=== PATIENT | female | born 1995 | race Caucasian/White ===

== ENCOUNTER 2021-12-01 08:02 | Outpatient (CLI) | payer OTHER ==
[2021-12-01 08:35] LABS: GTT GLUCOSE,FASTING 110 mg/dL (70-100)
[2021-12-01 09:58] LABS: THYROID STIMULATING HORMONE 2.34 uIU/mL (0.34-5.60)
[2021-12-01 10:02] LABS: FREE T4 (FREE THYROXINE) 0.91 ng/dL (0.58-1.64)
[2021-12-01 12:49] LABS: ESTIMATED AVERAGE GLUCOSE 117 mg/dL (70-100); HEMOGLOBIN A1c% 5.7 % (4.27-6.07)
== END 2021-12-01 08:03 | disposition home or self-care (01) ==
LOC: LAB 08:02
PROVIDERS: ATTEND Nurse Practitioner Obstetrics & Gynecology
DX: N92.6 Irregular menstruation, unspecified (principal); E66.8 Other obesity
CPT/HCPCS: 36415; 82951; 83036; 84439; 84443

== ENCOUNTER 2022-02-08 12:13 | Emergency (ER) | payer OTHER ==
--- OUTSIDE RECORDS SUMMARY | 2022-02-08 12:43 | EXTERNAL MEDICAL SUMMARY RPT | Continuity of Care Document ---
:1995 Author Organization [facility] Address [address] [place] [address] Phone Allergies No information. Encounters No information. Functional Status No information. Immunizations No information. Medications date description facility [id number] metoprolol tartrate All [id number]+0000 metformin All [id number]+0000 metformin All [id number]+0000 metoprolol tartrate All Problems No information. Procedures date description facility [id number] Visit Code Hold All Results/Labs No information. Social History No information. Vital Signs date measurement value units [id number]+0000 BMI BMI 42.13 kg/m2 04911217999135+0000 BP_diastolic BP_diastolic 85 mm[H g] 91374148416285+0000 BP_systolic BP_systolic 137 mm[Hg] 29094976468990+0000 heart_rate heart_rate 97 /min 00887725170610+0000 height_metric height_metric 170.18 cm 17467306838502+0000 height_standard height_standard 67 in 32447031874751+0000 respiration_rate respiration_rate 16 /min 34784730326959+0000 temperature_metric temperature_metric 36.78 C [id number]+0000 temperature_standard temperature_standard 9 8.2 F 84630517121964+0000 weight_metric weight_metric 121.56 kg 53926996754817+0000 weight_standard weight_standard 268 lb
[2022-02-08 12:44] LABS: EOSINOPHILS % (AUTO) 1.6 %; HCT - HEMATOCRIT 42.4 % (37.0-47.0); HGB - HEMOGLOBIN 14.5 g/dL (12.0-16.0); LYMPHOCYTES % (AUTO) 64.1 %; MEAN CORPUSCULAR HEMOGLOBIN 29.4 pg (27.0-31.0); MEAN CORPUSCULAR HGB CONC 34.2 g/dL (32.0-36.0); MEAN PLATELET VOLUME 9.9 fL (7.9-10.8); MONOCYTES % (AUTO) 6.8 %; PLT - PLATELET COUNT 279 10^3/uL (130-450); RED BLOOD COUNT 4.93 10^6/uL (4.20-5.40); RED CELL DISTRIBUTION WIDTH 13.2 % (12.0-15.0); WHITE BLOOD COUNT 10.5 x10^3/uL (4.8-10.8)
[2022-02-08 12:48] LABS: SLIDE REVIEW? Indicated
[2022-02-08 12:49] LABS: ABNORMAL LYMPHS % (MANUAL) 0 %
[2022-02-08 13:01] LABS: ALBUMIN 4.1 g/dL (3.2-5.5); ALBUMIN/GLOBULIN RATIO 1.1 (1.0-2.2); BILIRUBIN,TOTAL 0.4 mg/dL (0.2-1.0); CALCIUM 9.5 mg/dL (8.5-10.3); CREATININE 0.9 mg/dL (0.4-1.0); POTASSIUM 3.9 mmol/L (3.5-5.0); TOTAL PROTEIN 7.8 g/dL (6.7-8.2)
--- NOTE | 2022-02-08 13:04 | XRAY Report ---
PROCEDURE: Chest 1 View X-Ray INDICATIONS: Chest pain COMMENTS: CHEST PAIN/ PT STATES ONGOING CHEST PAIN THAT IS CENTRALLY LOC ATED THE RADIATES TO HER LEFT ARM AND DOWN PRIORS: NONE TECHNIQUE: One view of the chest was acquired. COMPARISON: None FINDINGS: Surgical changes and devices: None. Lungs and pleura: No pleural effusions or pneumothorax. Lungs are clear. Mediastinum: Mediastinal contours appear normal. Heart size is normal. Bones and chest wall: No suspicious bony lesions. Overlying soft tissues appear unremarkable. IMPRESSION: Normal chest x-ray Reviewed by: Gabe Zamora on 02/08/2022 12:03 PM NETTA Approved by: Gabe Zamora on 02/08/2022 12:03 PM NETTA Station ID: [id number]
[2022-02-08 13:32] LABS: BAND NEUTROPHILS % (MANUAL) 6 %; BASOPHILS # (MANUAL) 0.1 10^3/uL (0-0.1); BASOPHILS % (MANUAL) 1 %; DIFFERENTIAL COMMENT MANUAL DIFFERENTIAL; EOSINOPHILS # (MANUAL) 0.1 10^3/uL (0-0.7); LYMPHOCYTES # (MANUAL) 6.8 10^3/uL (1.5-3.5); LYMPHOCYTES % (MANUAL) 10 %; MONOCYTES # (MANUAL) 0.2 10^3/uL (0.0-1.0); NEUTROPHILS # (MANUAL) 3.3 10^3/uL (1.5-6.6); REACTIVE LYMPHS % (MANUAL) 55 %
[2022-02-08 13:33] LABS: PLATELET ESTIMATE, MANUAL NORMAL (130-450,000) (NORMAL); PLATELET MORPHOLOGY NORMAL APPEARANCE (NORMAL); RBC MORPHOLOGY (MULTIPLE) NORMAL APPEARANCE (NORMAL); WBC MORPHOLOGY (MULTIPLE) 4+ REACTIVE LYMPHS (NORMAL)
[2022-02-08 14:42] LABS: BILIRUBIN,URINE NEGATIVE (NEGATIVE); GLUCOSE, URINE (UA) NEGATIVE (NEGATIVE); KETONES,URINE (UA) NEGATIVE (NEGATIVE); LEUKOCYTE ESTERASE, URINE NEGATIVE (NEGATIVE); NITRITE,URINE NEGATIVE (NEGATIVE); OCCULT BLOOD,URINE NEGATIVE (NEGATIVE); PROTEIN,URINE NEGATIVE (NEGATIVE); UROBILINOGEN,URINE 1 (NORMAL) E.U./dL (NORMAL)
[2022-02-08 14:45] LABS: CLARITY,URINE CLEAR (CLEAR); HCG UR QUAL NEGATIVE
--- NOTE | 2022-02-08 16:51 | ED Physician Documentation ---
History of Present Illness - Stated complaint Stated Complaint: CHEST TIGHT/PX - Chief complaint Chief Complaint: Cardiac - History obtained from History obtained from: Patient - Additonal information Additional information: Pt comes to the ED with CC of central chest pain today. She denies any other sx. No nausea, SOB, or lightheadedness. SHe does not feel ill. The pt has been having migrating chest pains since testing positive for covid about a month ago. No fever or cough. No other complaints at this time. Review of Systems Ten Systems: 10 systems reviewed and negative Constitutional: reports: Reviewed and negative Eyes: reports: Reviewed and negative Ears: reports: Reviewed and negative Nose: reports: Reviewed and negative Throat: reports: Reviewed and negative Cardiac: reports: Chest pain / pressure Respiratory: reports: Reviewed and negative GI: reports: Reviewed and negative : reports: Reviewed and negative Skin: reports: Reviewed and negative Musculoskeletal: reports: Reviewed and negative Neurologic: reports: Reviewed and negative Psychiatric: reports: Reviewed and negative Endocrine: reports: Reviewed and negative Immunocompromised: reports: Reviewed and negative PD PAST MEDICAL HISTORY - Present Medications Home Medications: Ambulatory Orders Medication Instructions Recorded Confirmed predniSONE [Deltasone] 10 mg PO [id number] #42 tab 02/08/22 - Allergies Allergies/Adverse Reactions: Allergies Allergy/AdvReac Type Severity Reaction Status Date / Time No Known Drug Allergies Allergy Verified 02/08/22 12:23 PD ED PE NORMAL - Vitals Vital signs reviewed: Yes - General General: Alert and oriented X 3, No acute distress - HEENT HEENT: Atraumatic, PERRL, EOMI, Moist mucous membranes - Neck Neck: Supple, no meningeal sign - Cardiac Cardiac: RRR, No murmur - Respiratory Respiratory: No respiratory distress, Clear bilaterally - Abdomen Abdomen: Soft, Non tender, Non distended - Derm Derm: Warm and dry - Extremities Extremities: No deformity - Neuro Neuro: Alert and oriented X 3 - Psych Psych: Normal mood, Normal affect Results - Vitals Vitals: Vital Signs - 24 hr 02/08/22 02/08/22 02/08/22 12:24 12:30 16:58 Temperature 37.6 C 37.6 C 37.4 C Heart Rate 102 H 102 H 88 Respiratory 23 23 22 Rate Blood Pressure 148/78 H 148/78 H 130/76 O2 Saturation 97 97 100 Oxygen O2 Source Room air - EKG (time done) 1227 Rate: Rate (enter#) (104) Rhythm: Sinus tachycardia Elora: Normal Intervals: Normal IN QRS: Normal Ischemia: Normal ST segments, Non specific changes Compare to prior EKG: Old EKG unavailable Computer interpretation: Disagree with computer (No ischemic findings) - Labs Labs: Laboratory Tests 02/08/22 02/08/22 02/08/22 12:38 12:38 12:38 WBC 10.5 RBC 4.93 Hgb 14.5 Hct 42.4 MCV 86.0 MCH 29.4 MCHC 34.2 RDW 13.2 Plt Count 279 MPV 9.9 Neut # (Auto) Not Reportable Lymph # (Auto) Not Reportable [place] # (Auto) Not Reportable Eos # (Auto) Not Reportable Baso # (Auto) Not Reportable Absolute Nucleated RBC Not Reportable Total Counted 100 Band Neuts % (Manual) 6 Reactive Lymphs % (Man) 55 Abnorm Lymph % (Manual) 0 Nucleated RBC % Not Reportable Neutrophils # (Manual) 3.3 Lymphocytes # (Manual) 6.8 H Monocytes # (Manual) 0.2 Eosinophils # (Manual) 0.1 Basophils # (Manual) 0.1 Differential Comment MANUAL DIFFERENTIAL Manual Slide Review Indicated WBC Morphology 4+ REACTIVE LYMPHS Platelet Estimate NORMAL (130-450,000) Platelet Morphology NORMAL APPEARANCE RBC Morph Micro Appear NORMAL APPEARANCE Sodium 138 Potassium 3.9 Chloride 105 Carbon Dioxide 25 Anion Gap 8.0 BUN 12 Creatinine 0.9 Estimated GFR (MDRD) 77 L Glucose 116 H Calcium 9.5 Total Bilirubin 0.4 AST 104 H ALT 239 H Alkaline Phosphatase 136 H Troponin I High Sens 3.6 Total Protein 7.8 Albumin 4.1 Globulin 3.7 Albumin/Globulin Ratio 1.1 Lipase 40 Urine Color Urine Clarity Urine pH Ur Specific [place] Urine Protein Urine Glucose (UA) Urine Ketones Urine Occult Blood Urine Nitrite Urine Bilirubin Urine Urobilinogen Ur Leukocyte Esterase Ur Microscopic Review Urine Culture Comments Urine HCG, Qual 02/08/22 14:29 WBC RBC Hgb Hct MCV MCH MCHC RDW Plt Count MPV Neut # (Auto) Lymph # (Auto) [place] # (Auto) Eos # (Auto) Baso # (Auto) Absolute Nucleated RBC Total Counted Band Neuts % (Manual) Reactive Lymphs % (Man) Abnorm Lymph % (Manual) Nucleated RBC % Neutrophils # (Manual) Lymphocytes # (Manual) Monocytes # (Manual) Eosinophils # (Manual) Basophils # (Manual) Differential Comment Manual Slide Review WBC Morphology Platelet Estimate Platelet Morphology RBC Morph Micro Appear Sodium Potassium Chloride Carbon Dioxide Anion Gap BUN Creatinine Estimated GFR (MDRD) Glucose Calcium Total Bilirubin AST ALT Alkaline Phosphatase Troponin I High Sens Total Protein Albumin Globulin Albumin/Globulin Ratio Lipase Urine Color DARK YELLOW Urine Clarity CLEAR Urine pH 6.0 Ur Specific [place] 1.020 Urine Protein NEGATIVE Urine Glucose (UA) NEGATIVE Urine Ketones NEGATIVE Urine Occult Blood NEGATIVE Urine Nitrite NEGATIVE Urine Bilirubin NEGATIVE Urine Urobilinogen 1 (NORMAL) Ur Leukocyte Esterase NEGATIVE Ur Microscopic Review NOT INDICATED Urine Culture Comments NOT INDICATED Urine HCG, Qual NEGATIVE - Rads (name of study) abd US Radiology: Final report received, EMP read indepedently, See rad report (Hepatic steatosis and hepatomegaly) CXR Radiology: Final report received, EMP read indepedently, See rad report (neg) PD MEDICAL DECISION MAKING - ED course Complexity details: reviewed results, re-evaluated patient, considered differential, d/w patient ED course: Pt was well-appearing, but worked up with labs, EKG, CXR, initially. Her work- up was unremarkable, except for elevated LFTs. For this reason, US of the RUQ was ordered, and showed fatty liver and hepatomegaly. I d/w pt this finding, which I suspect is due to her obesity. Pt is advised to see her doctor to discuss further management, including a weight-loss plan. We have discussed the usual indications for return. Departure - Departure Disposition: 01 Home, Self Care Clinical Impression: Fatty liver Chest pain Qualifiers: Chest pain type: unspecified Qualified Code(s): R07.9 - Chest pain, unspecified Condition: Stable Instructions: NAFLD, ED Chest Pain Costochondritis Prescriptions: predniSONE [Deltasone] 10 mg PO [id number] #42 tab Comments: Your chest x-ray and EKG looked good and your labs mostly look good except for your liver enzymes which were somewhat elevated. Because of this, we did do an ultrasound to look at your liver and gallbladder. You do have some infiltration of fat into your liver and this is causing it to be enlarged. This can be a cause of your liver enzymes being higher than normal. Often, we see if fatty liver as the result of medications or sometimes chronic alcohol use, but it can also be related to fat content in the body. Please follow-up with your primary care physician to discuss further management strategies for this. Regarding your chest pain, a prescription for prednisone has been sent to the [facility] pharmacy in [place], which is your pharmacy of record. This can help some the inflammation in your chest wall following the viral syndrome you have had. You may pick this up tomorrow. Discharge Date/Time: 02/08/22 16:58
--- NOTE | 2022-02-08 16:57 | Ultrasound Report ---
PROCEDURE: Abdomen Limited INDICATIONS: upper abd/chest pn, elev LFTs TECHNIQUE: Real-time focused scanning was performed of the abdomen, with image documentation. COMPARISON: None FINDINGS: Liver: The liver is enlarged measuring 22 cm. Echotexture is increased consistent with hepatic steato sis. There is hepatopedal flow the portal vein. No mass or intrahepatic biliary ductal dilatation. Gallbladder: The gallbladder is contracted no stones. No wall thickening. Trace pericholecystic fluid is nonspecific. Biliary tree: The common bile duct measures 2.3 mm. Pancreas: The pancreas is normal. Kidneys: Right kidney measures 12.7. Cortical thickness is 1.7 cm. IMPRESSION: 1. Hepatomegaly and hepatic steatosis. 2. No acute abnormality. Reviewed by: Gabe Zamora on 02/08/2022 3:55 PM NETTA Approved by: Gabe Zamora on 02/08/2022 3:55 PM NETTA Station ID: [id number]
[2022-02-08 16:59] VITALS: BP 130/76
== END 2022-02-08 16:58 | disposition home or self-care (01) ==
LOC: ED 12:13
DX: R94.5 Abnormal results of liver function studies (principal); K76.0 Fatty (change of) liver, not elsewhere classified; E66.9 Obesity, unspecified; R07.9 Chest pain, unspecified
CPT/HCPCS: 36415; 80053; 81001; 81003; 81025; 83690; 84484; 85025; 87086; 93005; 99283; 99284

== ENCOUNTER 2022-02-28 06:55 | Emergency (ER) | payer OTHER ==
--- NOTE | 2022-02-28 07:26 | ED Physician Documentation ---
PD HPI ABD PAIN - Stated complaint Stated Complaint: BAKC/ABD PAIN - Chief complaint Chief Complaint: Abd Pain - History obtained from History obtained from: Patient - History of Present Illness Timing - onset: Yesterday (after dinner last evening ([place] food), onset upper abd to mid abd cramping pain that has persisted overnight.) Timing - duration: Hours (12) Timing - details: Gradual onset, Still present, Waxing and waning Quality: Cramping, Aching, Pain Location: RUQ, Epigastric, Periumbilical Radiation: Upper back Improved by: Laying still, Position (feels better sitting up, abd hunched.) Worsened by: Position (feels worse lying straight/flat.) Associated symptoms: Nausea. No: Fever, Vomiting, Diarrhea (had few small amount soft to liquid movements, but not overt watery diarrhea.), Constipation Similar symptoms before: Has not had sx before (history of PCOS with ruptured cysts multiple times, but this is not feeling like those.) Recently seen: Emergency Dept (02/08/22 for right chest pain and mild cough. Had COVID a month prior. Eval did not show acute lung process. Had elevated LFTs so RUQ US done showing no acute problems (just fatty liver). No gallstones at that time.) Review of Systems Constitutional: denies: Fever, Chills Nose: denies: Rhinorrhea / runny nose, Congestion Throat: denies: Sore throat Cardiac: denies: Chest pain / pressure Respiratory: denies: Cough GI: reports: Abdominal Pain, Nausea. denies: Vomiting, Constipation, Bloody / black stool : denies: Dysuria, Frequency, Irregular menses Skin: denies: Rash, Lesions Neurologic: denies: Generalized weakness, Near syncope PD PAST MEDICAL HISTORY - Past Medical History Cardiovascular: None Respiratory: None Endocrine/Autoimmune: None COMMUNICATIONS SENIOR ASSOCIATE: Other (PCOS) - Present Medications Home Medications: Ambulatory Orders Medication Instructions Recorded Confirmed Metoprolol Tartrate [Lopressor] 25 mg PO BID 02/28/22 02/28/22 Sertraline [Zoloft] 25 mg PO DAILY 02/28/22 02/28/22 metFORMIN [Glucophage] 500 mg PO ONCE 02/28/22 02/28/22 - Allergies Allergies/Adverse Reactions: Allergies Allergy/AdvReac Type Severity Reaction Status Date / Time adhesive AdvReac Rash Verified 02/28/22 07:05 PD ED PE NORMAL - Vitals Vital signs reviewed: Yes - General General: Alert and oriented X 3, No acute distress, Well developed/nourished - HEENT HEENT: Pharynx benign - Neck Neck: Supple, no meningeal sign, No adenopathy - Cardiac Cardiac: RRR (mild tachycardia which patient says is common for her.), No murmur - Respiratory Respiratory: Clear bilaterally - Abdomen Abdomen: Normal bowel sounds, Soft, Non distended, No organomegaly, Other (moderate tenderness periumbilical with mild guarding and percussion tenderness. elevated BMI. ) - Female Female : Deferred - Rectal Rectal: Deferred - Back Back: No CVA TTP - Derm Derm: Normal color, Warm and dry - Neuro Neuro: Alert and oriented X 3, No motor deficit, Normal speech Results - Vitals Vitals: Vital Signs - 24 hr 02/28/22 02/28/22 02/28/22 07:02 09:57 11:00 Temperature 36.2 C L Heart Rate 107 H 93 88 Respiratory 18 16 18 Rate Blood Pressure 135/76 H 130/69 120/74 O2 Saturation 98 100 100 Oxygen O2 Source Room air - Labs Labs: Laboratory Tests 02/28/22 02/28/22 02/28/22 07:57 07:57 08:10 WBC 15.1 H RBC 4.92 Hgb 14.8 Hct 42.9 MCV 87.2 MCH 30.1 MCHC 34.5 RDW 13.4 Plt Count 310 MPV 9.6 Neut # (Auto) 10.7 H Lymph # (Auto) 3.2 [place] # (Auto) 1.0 Eos # (Auto) 0.1 Baso # (Auto) 0.0 Absolute Nucleated RBC 0.00 Nucleated RBC % 0.0 Sodium 138 Potassium 4.1 Chloride 103 Carbon Dioxide 26 Anion Gap 9.0 BUN 10 Creatinine 0.7 Estimated GFR (MDRD) 103 Glucose 134 H Calcium 10.0 Total Bilirubin 0.9 AST 37 ALT 101 H Alkaline Phosphatase 65 Total Protein 8.1 Albumin 4.4 Globulin 3.7 Albumin/Globulin Ratio 1.2 Lipase 37 Urine Color YELLOW Urine Clarity CLEAR Urine pH 6.5 Ur Specific [place] <=1.005 Urine Protein NEGATIVE Urine Glucose (UA) NEGATIVE Urine Ketones NEGATIVE Urine Occult Blood NEGATIVE Urine Nitrite NEGATIVE Urine Bilirubin NEGATIVE Urine Urobilinogen 0.2 (NORMAL) Ur Leukocyte Esterase NEGATIVE Ur Microscopic Review NOT INDICATED Urine Culture Comments NOT INDICATED Urine HCG, Qual NEGATIVE - Rads (name of study) abd/pelvic CT Radiology: Prelim report reviewed (acute appendicitis), Discussed with rads, See rad report PD MEDICAL DECISION MAKING - ED course Complexity details: reviewed results (CT scan showing acute appendicitis with enlarged appendix and surrounding swelling.), re-evaluated patient (Recheck of the abdomen after CT has more distinctly now right lower quadrant to perium bilical tenderness. There is still local guarding and percussion tenderness, now more distinctly RLQ, but no general peritoneal signs.), considered differential, d/w patient, d/w technology sales consultant (We do not have surgical coverage at our facility through the weekend. I did talk with Dr. Lee who is on-call for surgery at [facility] and he is excepting of the patient. CT was showing uncomplicated appendicitis.) ED course: We have no surgeon on-call at our facility for another 24 hours. We will look to transfer the patient. We will initiate IV antibiotics. Departure - Departure Disposition: 02 Transfer Acute Care Hosp Clinical Impression: Abdominal pain Qualifiers: Abdominal location: periumbilical Qualified Code(s): R10.33 - Periumbilical pain Acute appendicitis Qualifiers: Acute appendicitis type: with localized peritonitis Appendicitis gangrene presence: without gangrene Appendicitis perforation presence: without perforation Appendicitis abscess presence: without abscess Qualified Code(s): K35.30 - Acute appendicitis with localized peritonitis, without perforation or gangrene Condition: Stable Record reviewed to determine appropriate education?: Yes
--- OUTSIDE RECORDS SUMMARY | 2022-02-28 07:28 | EXTERNAL MEDICAL SUMMARY RPT | Continuity of Care Document ---
:1995 Author Organization [place] Address [address] [place] [address] Phone Allergies No information. Encounters No information. Functional Status No information. Immunizations No information. Medications date description facility [id number]+0000 metoprolol tartrate All [id number]+0000 metformin All 69783291588083+0000 metformin All 34146958664746+0000 metoprolol tartrate All Problems No information. Procedures date description facility [id number]+0000 Visit Code Hold All Results/Labs No information. Social History No information. Vital Signs date measurement value units 85703626704963+0000 BMI BMI 42.13 kg/m2 79838866991340+0000 BP_diastolic BP_diastolic 85 mm[H g] 97346778450065+0000 BP_systolic BP_systolic 137 mm[Hg] 91317340647921+0000 heart_rate heart_rate 97 /min 26039291166997+0000 height_metric height_metric 170.18 cm 06695911501400+0000 height_standard height_standard 67 in 65492201269266+0000 respiration_rate respiration_rate 16 /min 86528596068272+0000 temperature_metric temperature_metric 36.78 C 72330621909851+0000 temperature_standard temperature_standard 9 8.2 F 70434130098148+0000 weight_metric weight_metric 121.56 kg 75383288815058+0000 weight_standard weight_standard 268 lb
[2022-02-28] MEDS ORDERED: KETOROLAC 15 MG/ML VIAL IVP STA (07:42)
[2022-02-28] MEDS ORDERED: ONDANSETRON 4 MG/2 ML VIAL IVP STA (07:42)
[2022-02-28] MEDS ORDERED: MORPHINE 10 MG/ML VIAL IVP STA (07:42)
[2022-02-28 08:02] LABS: BASOPHILS % (AUTO) 0.3 %; EOSINOPHILS # (AUTO) 0.1 10^3/uL (0.0-0.7); EOSINOPHILS % (AUTO) 0.7 %; HCT - HEMATOCRIT 42.9 % (37.0-47.0); HGB - HEMOGLOBIN 14.8 g/dL (12.0-16.0); LYMPHOCYTES # (AUTO) 3.2 10^3/uL (1.5-3.5); LYMPHOCYTES % (AUTO) 21.3 %; MEAN CORPUSCULAR HEMOGLOBIN 30.1 pg (27.0-31.0); MEAN CORPUSCULAR HGB CONC 34.5 g/dL (32.0-36.0); MEAN CORPUSCULAR VOLUME 87.2 fL (81.0-99.0); MEAN PLATELET VOLUME 9.6 fL (7.9-10.8); MONOCYTES % (AUTO) 6.7 %; NEUTROPHILS # (AUTO) 10.7 10^3/uL (1.5-6.6); NEUTROPHILS % (AUTO) 70.7 %; PLT - PLATELET COUNT 310 10^3/uL (130-450); RED BLOOD COUNT 4.92 10^6/uL (4.20-5.40); RED CELL DISTRIBUTION WIDTH 13.4 % (12.0-15.0); WHITE BLOOD COUNT 15.1 x10^3/uL (4.8-10.8)
[2022-02-28 08:14] LABS: ALBUMIN 4.4 g/dL (3.2-5.5); ALBUMIN/GLOBULIN RATIO 1.2 (1.0-2.2); BILIRUBIN,TOTAL 0.9 mg/dL (0.2-1.0); CREATININE 0.7 mg/dL (0.4-1.0); POTASSIUM 4.1 mmol/L (3.5-5.0); TOTAL PROTEIN 8.1 g/dL (6.7-8.2)
[2022-02-28 08:26] LABS: BILIRUBIN,URINE NEGATIVE (NEGATIVE); GLUCOSE, URINE (UA) NEGATIVE (NEGATIVE); KETONES,URINE (UA) NEGATIVE (NEGATIVE); LEUKOCYTE ESTERASE, URINE NEGATIVE (NEGATIVE); NITRITE,URINE NEGATIVE (NEGATIVE); OCCULT BLOOD,URINE NEGATIVE (NEGATIVE); PH,URINE 6.5 PH (5.0-7.5); PROTEIN,URINE NEGATIVE (NEGATIVE); UROBILINOGEN,URINE 0.2 (NORMAL) E.U./dL (NORMAL)
[2022-02-28 08:29] LABS: CLARITY,URINE CLEAR (CLEAR); HCG UR QUAL NEGATIVE
--- NOTE | 2022-02-28 09:02 | CT Report ---
PROCEDURE: Abdomen/Pelvis WO INDICATIONS: upper abd pain since yest TECHNIQUE: Noncontrast 5 mm thick sections acquired from the diaphragms to the symphysis. 5 mm coronal and sagi ttal reformats were then performed. For radiation dose reduction, the following was used: automated exposure control, adjustment of mA and/or kV according to patient size. COMPARISON: Correlation is made with abdominal ultrasound, 02/08/2022 FINDINGS: Image quality: Excellent. ABDOMEN: Lung bases: Lung bases are clear. Heart size is normal. Solid organs: The liver is prominent in size and demonstrates diffuse fatty infiltration. No focal l iver lesions are seen. The spleen is enlarged, measuring 14 cm. No focal splenic lesions are seen. Gallbladder wall does not appear thickened. Pancreas is normal in contours. No significant peripa ncreatic inflammatory change can be seen. No adrenal nodules. Kidneys are normal in size, without hydronephrosis or nephrolithiasis. Peritoneum and bowel: The appendix is abnormal, measuring 1 cm, with moderate surrounding inflammato ry change. Unenhanced bowel loops demonstrate normal wall thickness and caliber. No free fluid or air. Nodes and vessels: Abnormally prominent right lower quadrant lymph nodes are seen, with the largest lymph node measuring up to 2 cm. Aorta and inferior vena cava are normal in caliber. Miscellaneous: No ventral hernias. PELVIS: Genitourinary: Bladder wall thickness is normal. The uterus demonstrates an unremarkable appearance for age. No adnexal masses are seen. Miscellaneous: No inguinal hernias or adenopathy. Bones: No suspicious bony lesions. No vertebral body compression fractures. IMPRESSION: These imaging findings are highly suspicious for acute appendicitis, yet without findings of perforat ion or abscess. Note is made of enlarged right lower quadrant lymph nodes. A cause of upper abdominal pain is not seen. Incidental note is made of: Enlarged, fatty liver Mild splenomegaly Note: Case discussed by telephone with Dr. Bergman at 8 AM [place] time on 02/28/2022. Reviewed by: Yonatan Jackson MD on 02/28/2022 8:00 AM NETTA Approved by: Yonatan Jackson MD on 02/28/2022 8:00 AM NETTA Station ID: [id number]
[2022-02-28] MEDS ORDERED: PIPERACILLIN/TAZOBACTAM 3.375 GM in SODIUM CHLORIDE 0.9% MINIBAG 100 ML IV STA (09:18)
[2022-02-28] MEDS ORDERED: SODIUM CHLORIDE 0.9% 1,000 ML IV STA ×2 (09:18→11:34)
[2022-02-28] MEDS ORDERED: HYDROmorphone 1 MG/ML CARPUJECT IVP STA (11:34)
[2022-02-28 15:00] VITALS: BP 120/68
== END 2022-02-28 15:06 | disposition short-term general hospital (02) ==
LOC: ED 06:55
DX: K35.30 Acute appendicitis with localized peritonitis, without perforation or gangrene (principal); Z20.822 Contact with and (suspected) exposure to COVID-19
CPT/HCPCS: 36415; 74176; 80053; 81003; 81025; 83690; 85025; 87635; 96365; 96375; 99284; 99285; J1170; 81001; 87086

== ENCOUNTER 2022-02-28 15:08 | Outpatient (CLI) | payer OTHER | END 2022-02-28 15:09 | disposition short-term general hospital (02) | LOC: EMS 15:08 | PROVIDERS: ATTEND Emergency Medicine | DX: K37 Unspecified appendicitis (principal) | CPT/HCPCS: A0425; A0426 ==

== ENCOUNTER 2022-09-11 01:37 | Emergency (ER) | payer OTHER ==
--- NOTE | 2022-09-11 02:31 | ED Physician Documentation ---
History of Present Illness - Stated complaint Stated Complaint: NECK, THROAT PAIN - Chief complaint Chief Complaint: General - History obtained from History obtained from: Patient - History of Present Illness Timing: How many days ago (2) - Additonal information Additional information: HPI from patient. Patient c/o 2 days of sore throat, neck pain, chills alter nating with feeling hot although no fever (has taken temperature at home). Mild READING ASSISTANT cough. Took home COVID test with negative result. PD PAST MEDICAL HISTORY - Past Medical History Cardiovascular: None Respiratory: None Endocrine/Autoimmune: None GI: Other MANAGER MASS: Other HEENT: None Derm: None - Past Surgical History Past Surgical History: No - Present Medications Home Medications: Ambulatory Orders Medication Instructions Recorded Confirmed Metoprolol Tartrate [Lopressor] 25 mg PO BID 02/28/22 02/28/22 metFORMIN [Glucophage] 1,000 mg PO BID 02/28/22 09/11/22 - Allergies Allergies/Adverse Reactions: Allergies Allergy/AdvReac Type Severity Reaction Status Date / Time adhesive AdvReac Rash Verified 09/11/22 01:44 - Social History Does the pt smoke?: No Smoking Status: Never smoker Does the pt drink ETOH?: No Does the pt have substance abuse?: No - Immunizations Immunizations are current?: Yes - POLST Patient has POLST: No PD ED PE NORMAL - Vitals Vital signs reviewed: Yes - General General: Alert and oriented X 3, No acute distress, Well developed/nourished - HEENT HEENT: Moist mucous membranes, Other (mild posterior oropharyngeal erythema without exudate) - Neck Neck: Supple, no meningeal sign, No adenopathy, Thyroid normal - Respiratory Respiratory: No respiratory distress, Clear bilaterally Results - Vitals Vitals: Oxygen O2 Source Room air - Labs Labs: Microbiology 09/11/22 02:47 Group A Strep Throat Culture - Preliminary Throat CULTURE IN PROGRESS. RESULTS TO FOLLOW. Laboratory Tests 09/11/22 09/11/22 02:47 02:47 Nasal Adenovirus (PCR) NOT DETECTED Nasal B. parapertussis DNA (PCR) NOT DETECTED Nasal Coronavir 229E PCR NOT DETECTED Nasal Coronavir HKU1 PCR NOT DETECTED Nasal Coronavir NL63 PCR NOT DETECTED Nasal Coronavir OC43 PCR NOT DETECTED Nasal Enterovir/Rhinovir PCR NOT DETECTED Nasal Influenza B PCR NOT DETECTED Nasal Influenza A PCR NOT DETECTED Nasal Parainfluen 1 PCR NOT DETECTED Nasal Parainfluen 2 PCR NOT DETECTED Nasal Parainfluen 3 PCR NOT DETECTED Nasal Parainfluen 4 PCR NOT DETECTED Nasal RSV (PCR) NOT DETECTED Nasal B.pertussis DNA PCR NOT DETECTED Nasal C.pneumoniae (PCR) NOT DETECTED Raciel Human Metapneumo PCR NOT DETECTED Nasal M.pneumoniae (PCR) NOT DETECTED Nasal SARS-CoV-2 (PCR) NOT DETECTED Group A Strep Rapid Negative PD Medical Decision Making - ED course Complexity details: reviewed results, re-evaluated patient, considered differential, d/w patient ED course: no meningismus and patient is well-appearing. rapid strep test result negative, and respiratory viral PCR negative for viruses tested. suspect viral URI/viral pharyngitis, throat culture results pending. discussed result of rapid strep with patient. Departure - Departure Disposition: 01 Home, Self Care Clinical Impression: Pharyngitis Qualifiers: Pharyngitis/tonsillitis etiology: unspecified etiology Qualified Code(s): J02.9 - Acute pharyngitis, unspecified Condition: Good Instructions: ED Pharyngitis Viral Report Pending Follow-Up: Cesar Casillas MD [Primary Care Provider] - (2-3 days if symptoms have not completely resolved) Comments: The rapid strep test was negative. The lab will now perform a culture on that throat swab. Unusually, the initial rapid strep test is incorrect ("false negative "), and the culture will nearly always detect those unusual cases. Also, the rapid strep will only check for group a strep (the most common bacterial cause of pharyngitis); there are a few other types of strep which cannot be found on the rapid test but should be detected on the culture. If the throat culture is positive for any of these organisms, you will receive a phone call regarding result and a prescription for an antibiotic can be sent to your pharmacy of choice should that situation arise. You will not hear from us if you are throat swab culture results negative. The nasal swab tested for several different viruses including COVID, influenza, and RSV. The nasal swab test was negative for all of the viruses tested. Cause of your symptoms is unclear at this time. Further tests in the emergency department are not indicated at this time. However, should your symptoms worsen in any way, or if you develop new/concerning signs/symptoms, you can return to the emergency department for reevaluation. Despite the nasal swab being negative for the viruses tested, I still suspect a viral infection causing your symptoms. Discharge Date/Time: 09/11/22 04:49
[2022-09-11 03:02] LABS: RAPID STREP SCREEN Negative (Negative)
[2022-09-11 03:44] VITALS: BP 123/75
[2022-09-11 03:54] LABS: B. PARAPERTUSSIS- RESP PCR PAN NOT DETECTED; B. PERTUSSIS- RESP PCR PANEL NOT DETECTED; C. PNEUMONIAE- RESP PCR PANEL NOT DETECTED; CORONAVIRUS 229E-RESP PCR NOT DETECTED; CORONAVIRUS HKU1-RESP PCR NOT DETECTED; CORONAVIRUS NL63-RESP PCR NOT DETECTED; CORONAVIRUS OC43-RESP PCR NOT DETECTED; HUMAN METAPNEUMOVIRUS NOT DETECTED; INFLUENZA A- RESP PCR PANEL NOT DETECTED; INFLUENZA B - RESP PCR PANEL NOT DETECTED; M. PNEUMONIAE- RESP PCR PANEL NOT DETECTED; PARAINFLUENZA VIRUS 1 NOT DETECTED; PARAINFLUENZA VIRUS 2 NOT DETECTED; PARAINFLUENZA VIRUS 3 NOT DETECTED; PARAINFLUENZA VIRUS 4 NOT DETECTED; RHINOVIRUS/ENTEROVIRUS NOT DETECTED; RSV- RESP PCR PANEL NOT DETECTED; SARS-CoV-2 -RESP PCR PANEL NOT DETECTED
== END 2022-09-11 04:49 | disposition home or self-care (01) ==
LOC: ED 01:37
DX: J02.9 Acute pharyngitis, unspecified (principal); Z20.822 Contact with and (suspected) exposure to COVID-19
CPT/HCPCS: 87070; 87430; 87633; 99283